=== PATIENT | female | born 1945 ===

== ENCOUNTER → 2019-04-08 | Outpatient (CLI) | payer MEDICARE, OTHER | END | disposition home or self-care (01) | LOC: LAB SHORT 10:38 → PLD 10:38 | DX: M79.3 Panniculitis, unspecified (principal); L08.89 Other specified local infections of the skin and subcutaneous tissue; L90.5 Scar conditions and fibrosis of skin | CPT/HCPCS: 88305; 88312; 88313 ==

== ENCOUNTER → 2021-01-02 | Outpatient (CLI) | payer MEDICARE, OTHER | END | disposition home or self-care (01) | LOC: LAB SHORT 15:55 | DX: D48.5 Neoplasm of uncertain behavior of skin (principal) | CPT/HCPCS: 88305 ==